=== PATIENT | female | born 1975 | race African-American/Black ===

== ENCOUNTER 2020-10-29 19:35 | Emergency (ER) | payer OTHER ==
[~2020-10-29 19:35] MED LIST: FLOMAX 0.4 MG0.4 MG PO; NORCO 5-325 TA1 EACH PO; PRILOSEC20 MG PO; ZOFRAN4 MG SL
[2020-10-29 20:23] LABS: BASOPHIL 0.4 % (0-2); EOSINOPHIL 1.3 % (0-5); HCT 36.8 % (37.0-47.0); HGB 11.8 g/dl (12.5-16.0); LYMPHOCYTE 27.7 % (15-48); MCH 27.3 pg (25.0-31.0); MCHC 32.1 g/dL (32.0-36.0); MCV 85.2 fL (78.0-100.0); MONOCYTE 7.1 % (0-12); MPV 9.8 fL (6.0-9.5); NEUTROPHIL 63.1 % (41-80); NRBC 0; PLT 277 K/uL (150-400); RBC 4.32 M/uL (4.20-5.40); RDW 13.5 % (11.5-14.0); WBC 5.5 K/uL (4.0-10.5)
[2020-10-29 20:33] LABS: ALBUMIN 3.7 g/dL (3.4-5.0); BILIRUBIN - TOTAL 0.2 mg/dL (0.2-1.0); BUN/CREAT RATIO (CALC) 18.4 RATIO; CREATININE 0.98 mg/dL (0.51-0.95); GLOBULIN (CALCULATION) 3.8 g/dL; POTASSIUM 3.9 mmol/L (3.5-5.1); TOTAL PROTEIN 7.5 g/dL (6.4-8.2)
[2020-10-29] MEDS ORDERED: ONDANSETRON ODT4 MG PO (21:44)
[2020-10-29] MEDS ORDERED: PEPCID AC20 MG PO (21:44)
== END 2020-10-29 22:00 | disposition home or self-care (01) ==
LOC: FER 19:35
PROVIDERS: Emergency Medicine
DX: R10.13 Epigastric pain (principal); E11.9 Type 2 diabetes mellitus without complications; Z20.822 Contact with and (suspected) exposure to COVID-19; Z88.0 Allergy status to penicillin; Z88.6 Allergy status to analgesic agent; Z91.041 Radiographic dye allergy status; Z79.84 Long term (current) use of oral hypoglycemic drugs
CPT/HCPCS: 36415; 71045; 80053; 82150; 83690; 84484; 85025; 85379; 93005; J0780; J2270; U0002